=== PATIENT | female | born 1945 | race Caucasian/White ===

== ENCOUNTER 2020-07-21 13:47 | Emergency (ER) | payer OTHER ==
[2020-07-21 14:06] VITALS: BP 114/58; PULSE 62; TEMP 98.2; BMI 21.8
[2020-07-21] MEDS ORDERED: FAMOTIDINE 20 MG/50 ML IVPB 20 MG/50 ML MG IVPB ONE ×2 (14:57→17:44)
[2020-07-21] MEDS ORDERED: MAG HYDROX/AL HYDROX/SIMETH 30 ML UNIT-DOSE CUP PO ONE (14:57)
[2020-07-21 17:03] LABS: BASO % 1.2 % (0-2.0); EOS % 0.7 % (0-4.5); HEMATOCRIT 32.7 % (32.4-45.2); HEMOGLOBIN 10.7 GM/dL (10.7-15.3); LYMPH % 27.9 % (8-40); MCH 25.6 pg (25.7-33.7); MCHC 32.7 g/dl (32.0-36.0); MEAN CELL VOLUME 78.3 fl (80-96); MEAN PLT VOLUME 8.1 fl (7.5-11.1); MONO % 5.1 % (3.8-10.2); NEUT % 65.1 % (42.8-82.8); PLATELET COUNT 282 K/MM3 (134-434); RBC 4.17 M/mm3 (3.60-5.2); RDW 18.6 % (11.6-15.6); WHITE BLOOD COUNT 8.4 K/mm3 (4.0-10.0)
[2020-07-21 17:04] LABS: EPI CELLS 16 /uL (0-25.1); HYALINE CASTS 1 /uL (0-3.1); URINE APPEARANCE CLEAR; URINE BACTERIA 77 /uL (0-1359); URINE BILIRUBIN NEGATIVE (NEGATIVE); URINE COLOR YELLOW; URINE GLUCOSE (UA) NEGATIVE (NEGATIVE); URINE KETONE NEGATIVE (NEGATIVE); URINE LEUK ESTERASE TRACE (NEGATIVE); URINE NITRITE NEGATIVE (NEGATIVE); URINE PROTEIN TRACE (NEGATIVE); URINE RBC 6 /uL (0-23.9); URINE UROBILINOGEN 0.2 mg/dL (0.2-1.0); URINE WBC 8 /uL (0-25.8)
[2020-07-21 17:28] LABS: CHLORIDE 106 mmol/L (98-107); SODIUM 135 mmol/L (136-145)
[2020-07-21 17:32] LABS: ALBUMIN 3.5 g/dl (3.4-5.0); BLOOD UREA NITROGEN 10.6 mg/dL (7-18); CALCIUM 8.8 mg/dL (8.5-10.1); CO2 27 mmol/L (21-32); GLUCOSE,RANDOM 86 mg/dL (74-106); LIPASE 177 U/L (73-393)
[2020-07-21 17:34] LABS: CREATININE 1.1 mg/dL (0.55-1.3); SGOT/AST 58 U/L (15-37)
[2020-07-21 17:37] LABS: ALK PHOS 90 U/L (45-117); BILIRUBIN,TOTAL 0.6 mg/dL (0.2-1); TOT PROT 7.8 g/dl (6.4-8.2)
[2020-07-21] MEDS ORDERED: MAG HYDROX/AL HYDROX/SIMETH 30 ML UNIT-DOSE CUP ONE (17:44)
[2020-07-21 18:03] LABS: ANION GAP 2 MMOL/L (8-16)
[2020-07-21 18:30] LABS: SGPT/ALT 17 U/L (13-61)
[2020-07-21] MEDS ORDERED: NITROFURANTOIN MACROCRYSTAL 50 MG CAPSULE (FP) ONE (21:13)
[2020-07-21] MEDS ORDERED: NITROFURANTOIN MACROCRYSTAL 50 MG CAPSULE (FP) PO SCH (21:15)
== END 2020-07-21 21:26 | disposition home or self-care (01) ==
LOC: JER 13:47
PROC: 3E033GC Introduction of Other Therapeutic Substance into Peripheral Vein, Percutaneous Approach (ICD-10-PCS; principal; 2020-07-21)
DX: R10.13 Epigastric pain (principal)
CPT/HCPCS: 36415; 74177-TC; 80053; 81003; 82550; 82553; 83690; 84132; 84484; 85025; 87086; 87186; 93005; 93010; 99285-25; C9803; Q9967; U0003; U0005

== ENCOUNTER 2020-07-25 15:43 | Emergency (ER) | payer OTHER ==
[2020-07-25 16:12] VITALS: BMI 18.4
[2020-07-25] MEDS ORDERED: ONDANSETRON 4 MG/2 ML VIAL IVPUSH ONE (16:35)
[2020-07-25] MEDS ORDERED: FAMOTIDINE 20 MG/50 ML IVPB 20 MG/50 ML MG IVPB ONE ×2 (16:35→17:36)
[2020-07-25] MEDS ORDERED: LACTATED RINGERS SOLUTION 1000 ML INFUS.BAG IV STA (16:36)
[2020-07-25] MEDS ORDERED: ONDANSETRON 4 MG/2 ML VIAL ONE (17:35)
[2020-07-25 17:46] LABS: BASO % 0.7 % (0-2.0); EOS % 3.4 % (0-4.5); HEMATOCRIT 33.7 % (32.4-45.2); HEMOGLOBIN 11.1 GM/dL (10.7-15.3); MCH 25.6 pg (25.7-33.7); MCHC 32.9 g/dl (32.0-36.0); MEAN CELL VOLUME 77.7 fl (80-96); MEAN PLT VOLUME 7.4 fl (7.5-11.1); MONO % 6.8 % (3.8-10.2); NEUT % 66.1 % (42.8-82.8); PLATELET COUNT 278 K/MM3 (134-434); RBC 4.34 M/mm3 (3.60-5.2); RDW 18.1 % (11.6-15.6)
[2020-07-25 17:55] LABS: INR 0.92 (0.83-1.09); PROTHROMBIN TIME (PATIENT) 11.3 SEC (9.7-13.0)
[2020-07-25 18:02] LABS: CHLORIDE 105 mmol/L (98-107); SODIUM 140 mmol/L (136-145)
[2020-07-25 18:04] LABS: CALCIUM 9.6 mg/dL (8.5-10.1)
[2020-07-25 18:05] LABS: ALBUMIN 3.9 g/dl (3.4-5.0); ANION GAP 6 MMOL/L (8-16); BLOOD UREA NITROGEN 7.3 mg/dL (7-18); CO2 29 mmol/L (21-32); GLUCOSE,RANDOM 84 mg/dL (74-106); LIPASE 257 U/L (73-393)
[2020-07-25 18:08] LABS: CREATININE 0.9 mg/dL (0.55-1.3); SGOT/AST 14 U/L (15-37); SGPT/ALT 15 U/L (13-61)
[2020-07-25 18:09] LABS: BILIRUBIN,TOTAL 0.5 mg/dL (0.2-1)
[2020-07-25 18:10] LABS: TOT PROT 7.6 g/dl (6.4-8.2)
[2020-07-25 18:11] LABS: ALK PHOS 94 U/L (45-117)
[2020-07-25 20:05] VITALS: BP 157/58; PULSE 78; TEMP 98.4
== END 2020-07-25 20:05 | disposition home or self-care (01) ==
LOC: JER 15:43
PROC: 3E033NZ Introduction of Analgesics, Hypnotics, Sedatives into Peripheral Vein, Percutaneous Approach (ICD-10-PCS; principal; 2020-07-25)
PROC: 3E033GC Introduction of Other Therapeutic Substance into Peripheral Vein, Percutaneous Approach (ICD-10-PCS; 2020-07-25)
DX: R10.13 Epigastric pain (principal)
CPT/HCPCS: 36415; 71045-TC-FY; 80053; 82550; 83605; 83690; 84484; 85025; 85610; 93005; 93010; 99285-25

== ENCOUNTER 2020-12-10 13:13 | Emergency (ER) | payer OTHER ==
[2020-12-10 14:09] VITALS: BP 130/57; PULSE 80; TEMP 98; BMI 25.0
[2020-12-10] MEDS ORDERED: METHOCARBAMOL 500 MG TABLET PO ONE (15:11)
[2020-12-10] MEDS ORDERED: LIDOCAINE 5% TOPICAL PATCH TP ONE (15:11)
[2020-12-10] MEDS ORDERED: METHOCARBAMOL 500 MG TABLET ONE (15:24)
[2020-12-10] MEDS ORDERED: LIDOCAINE 5% TOPICAL PATCH ONE (15:24)
== END 2020-12-10 17:10 | disposition home or self-care (01) ==
LOC: JERFT 13:13
DX: M43.6 Torticollis (principal); M62.838 Other muscle spasm
CPT/HCPCS: 72050-TC-FY; 99283-25

== ENCOUNTER 2020-12-24 04:57 | Day surgery (SDC) | payer OTHER ==
[2020-12-23 11:55] VITALS: BMI 24.6
[2020-12-24] MEDS ORDERED: HEPARIN NA (PORCINE) 5,000 UNITS/ML 1ML VIAL ONE (15:10)
[2020-12-24] MEDS ORDERED: DEXAMETHASONE SOD PHOSPHATE 4 MG/1 ML VIAL ONE (15:10)
[2020-12-24] MEDS ORDERED: LIDOCAINE HCL 1%, 10 MG/ML (20ML VIAL) ONE (15:10)
[2020-12-24] MEDS ORDERED: MIDAZOLAM HCL 2 MG/2 ML SINGLE DOSE VIAL ONE (15:38)
[2020-12-24] MEDS ORDERED: PROPOFOL 20 ML ONE (15:42)
[2020-12-24] MEDS ORDERED: LIDOCAINE HCL 1%, 10 MG/ML (20ML VIAL) PNB ONE (15:56)
[2020-12-24] MEDS ORDERED: oxyCODONE HCL 5 MG TABLET PO PRN ×2 (17:12)
[2020-12-24] MEDS ORDERED: ONDANSETRON 4 MG/2 ML VIAL IVPUSH PRN (17:12)
[2020-12-24] MEDS ORDERED: LACTATED RINGERS SOLUTION 1,000 ML IV SCH (17:15)
[2020-12-24 19:41] VITALS: BP 149/50; PULSE 77; TEMP 98.1
== END 2020-12-24 07:35 | disposition home or self-care (01) ==
LOC: JASU-SURG 04:57
PROVIDERS: ATTEND Surgery Vascular Surgery
PROC: 047K3D1 Dilation of Right Femoral Artery with Intraluminal Device, using Drug-Coated Balloon, Percutaneous Approach (ICD-10-PCS; principal; 2020-12-24 11:00)
DX: I70.211 Atherosclerosis of native arteries of extremities with intermittent claudication, right leg (principal); E11.9 Type 2 diabetes mellitus without complications
CPT/HCPCS: 37227; C1877; 76000-TC-FY; 82962; 94760; J1644

== ENCOUNTER 2021-06-17 04:15 | Day surgery (SDC) | payer OTHER ==
[2021-06-14 15:34] VITALS: BMI 24.6
[2021-06-17] MEDS ORDERED: HEPARIN NA (PORCINE) 5,000 UNITS/ML 1ML VIAL ONE (07:45)
[2021-06-17] MEDS ORDERED: LIDOCAINE HCL 1%, 10 MG/ML (20ML VIAL) ONE (07:45)
[2021-06-17] MEDS ORDERED: ceFAZolin SODIUM 1 GM VIAL IVPB ONE (11:45)
[2021-06-17] MEDS ORDERED: LIDOCAINE HCL 1%, 10 MG/ML (20ML VIAL) NR ONE ×3 (11:51)
[2021-06-17] MEDS ORDERED: MIDAZOLAM HCL 2 MG/2 ML SINGLE DOSE VIAL ONE (12:08)
[2021-06-17] MEDS ORDERED: ONDANSETRON 4 MG/2 ML VIAL IVPUSH PRN (13:36)
[2021-06-17] MEDS ORDERED: oxyCODONE HCL 5 MG TABLET PO PRN (13:36)
[2021-06-17] MEDS ORDERED: SODIUM CHLORIDE 1,000 ML IV SCH (13:45)
[2021-06-17] MEDS ORDERED: oxyCODONE HCL 5 MG TABLET PO ONE (14:41)
[2021-06-17 15:47] VITALS: BP 137/58; PULSE 53; TEMP 97.1
== END 2021-06-17 15:40 | disposition home or self-care (01) ==
LOC: JASU-SURG 04:15
PROVIDERS: ATTEND Surgery Vascular Surgery
PROC: 047K3D1 Dilation of Right Femoral Artery with Intraluminal Device, using Drug-Coated Balloon, Percutaneous Approach (ICD-10-PCS; principal; 2021-06-17 10:30)
DX: E11.51 Type 2 diabetes mellitus with diabetic peripheral angiopathy without gangrene (principal); I70.211 Atherosclerosis of native arteries of extremities with intermittent claudication, right leg; Z79.84 Long term (current) use of oral hypoglycemic drugs
CPT/HCPCS: 37227; 37228; C1877; C1885; C2623; 76000-TC-FY; 82962; 94760; J1644

== ENCOUNTER 2021-08-05 04:18 | Day surgery (SDC) | payer OTHER ==
[2021-08-04 13:31] VITALS: BMI 24.4
[2021-08-05] MEDS ORDERED: LIDOCAINE HCL 1%, 10 MG/ML (20ML VIAL) ONE (09:59)
[2021-08-05] MEDS ORDERED: HEPARIN NA (PORCINE) 5,000 UNITS/ML 1ML VIAL ONE (09:59)
[2021-08-05] MEDS ORDERED: FENTANYL CITRATE/PF 50 MCG/ML VIAL ONE ×5 (12:28→14:29)
[2021-08-05] MEDS ORDERED: MIDAZOLAM HCL 2 MG/2 ML SINGLE DOSE VIAL ONE (12:28)
[2021-08-05] MEDS ORDERED: DEXMEDETOMIDINE HCL 200 MCG/2 ML IVPB ONE (12:29)
[2021-08-05] MEDS ORDERED: ceFAZolin SODIUM 1 GM VIAL IVPB ONE (12:36)
[2021-08-05] MEDS ORDERED: ONDANSETRON 4 MG/2 ML VIAL ONE (13:21)
[2021-08-05] MEDS ORDERED: PROMETHAZINE HCL 25 MG/1 ML VIAL IVPUSH PRN (13:37)
[2021-08-05] MEDS ORDERED: ONDANSETRON 4 MG/2 ML VIAL IVPUSH PRN (13:37)
[2021-08-05] MEDS ORDERED: LACTATED RINGERS SOLUTION 1,000 ML IV SCH (13:45)
[2021-08-05] MEDS ORDERED: PROTAMINE SULFATE 50 MG/5 ML VIAL ONE (17:30)
[2021-08-05] MEDS ORDERED: ACETAMINOPHEN 325 MG TABLET (FP) PO PRN (20:38)
[2021-08-05] MEDS: LOSARTAN POTASSIUM 50 MG TABLET PO SCH (21:20)
[2021-08-05] MEDS ORDERED: ATORVASTATIN CA 40 MG TABLET (FP) PO SCH (22:00)
[2021-08-05] MEDS ORDERED: FAMOTIDINE 20 MG TABLET PO SCH (22:00)
[2021-08-06] MEDS ORDERED: PATIENT'S OWN MEDICATION (NON-FORMULARY) (Alendronate Sodium [Alendronate Sodium] 70 MG Ta PO SCH (08:45)
[2021-08-06] MEDS: LOSARTAN POTASSIUM 50 MG TABLET PO SCH (09:06)
[2021-08-06 09:42] VITALS: BP 144/56; PULSE 63; TEMP 98.6
[2021-08-06] MEDS ORDERED: PANTOPRAZOLE 40 MG TABLET PO SCH (10:00)
[2021-08-06] MEDS ORDERED: ASCORBIC ACID 500 MG TABLET (FP) PO SCH (10:00)
[2021-08-06] MEDS ORDERED: CLOPIDOGREL BISULFATE 75 MG TABLET (FP) PO SCH (10:00)
[2021-08-06] MEDS ORDERED: FERROUS SO4 325 MG TABLET (FP) PO SCH (10:00)
[2021-08-06] MEDS ORDERED: metFORMIN HCL 500 MG TABLET (FP) PO SCH (16:30)
== END 2021-08-06 11:14 | disposition home or self-care (01) ==
LOC: JASUSAT 04:18 → JASU-SURG 04:18 → J8W 20:14 → JASUSAT 08-06 11:14
PROVIDERS: ATTEND Surgery Vascular Surgery
PROC: 047K3Z1 Dilation of Right Femoral Artery using Drug-Coated Balloon, Percutaneous Approach (ICD-10-PCS; principal; 2021-08-05 12:30)
DX: I70.211 Atherosclerosis of native arteries of extremities with intermittent claudication, right leg (principal)
CPT/HCPCS: 37186; 37225; C1885; C2623; 76000-TC-FY; 82962; 94760; J1644

== ENCOUNTER → 2024-01-18 | Day surgery (SDC) | payer OTHER ==
[2024-01-16 13:51] VITALS: BMI 22.1
[~2024-01-18] MED LIST: ACETAMINOPHEN 500 MG TABLET (FP) PO PRN; DEXAMETHASONE SOD PHOSPHATE 4 MG/1 ML VIAL ONE
[2024-01-18 14:17] VITALS: RESP 18
[2024-01-18] MEDS: LIDOCAINE HCL 1% PRESERVATIVE FREE - 30ML VIAL IJ ONE ×3 (15:29)
[2024-01-18] MEDS: IOHEXOL 180 MG/1 ML ML IJ ONE ×2 (15:30)
[2024-01-18] MEDS: DEXAMETHASONE SOD PHOSPHATE 10 MG/1 ML VIAL IM ONE ×2 (15:31)
[2024-01-18 15:42] VITALS: BP 137/52; PULSE 74; TEMP 97.5
== END | disposition home or self-care (01) ==
LOC: JASU-SURG 05:19
PROVIDERS: ATTEND Pain Medicine Pain Medicine
PROC: 3E0R3BZ Introduction of Anesthetic Agent into Spinal Canal, Percutaneous Approach (ICD-10-PCS; 2024-01-18)
PROC: 3E0R33Z Introduction of Anti-inflammatory into Spinal Canal, Percutaneous Approach (ICD-10-PCS; principal; 2024-01-18 15:45)
DX: M48.061 Spinal stenosis, lumbar region without neurogenic claudication (principal); M54.16 Radiculopathy, lumbar region
CPT/HCPCS: 76000-TC-FY; J1100